=== PATIENT | female | born 1960 | race Caucasian/White ===

== ENCOUNTER 2018-02-05 15:30 | Emergency (ER) | payer OTHER ==
[2018-02-05 16:26] LABS: BILIRUBIN,URINE NEGATIVE (NEGATIVE); GLUCOSE, URINE (UA) NEGATIVE (NEGATIVE); KETONES,URINE (UA) NEGATIVE (NEGATIVE); LEUKOCYTE ESTERASE, URINE NEGATIVE (NEGATIVE); NITRITE,URINE NEGATIVE (NEGATIVE); OCCULT BLOOD,URINE NEGATIVE (NEGATIVE); PROTEIN,URINE NEGATIVE (NEGATIVE); UROBILINOGEN,URINE 0.2 (NORMAL) E.U./dL (NORMAL)
[2018-02-05 16:28] LABS: BASOPHILS # (AUTO) 0.1 10^3/uL (0.0-0.1); BASOPHILS % (AUTO) 0.8 %; EOSINOPHILS # (AUTO) 0.2 10^3/uL (0.0-0.7); EOSINOPHILS % (AUTO) 2.8 %; HGB - HEMOGLOBIN 14.9 g/dL (12.0-16.0); LYMPHOCYTES # (AUTO) 2.4 10^3/uL (1.5-3.5); LYMPHOCYTES % (AUTO) 37.6 %; MEAN CORPUSCULAR HEMOGLOBIN 34.4 pg (27.0-31.0); MEAN PLATELET VOLUME 9.8 fL (7.9-10.8); MONOCYTES # (AUTO) 0.5 10^3/uL (0.0-1.0); MONOCYTES % (AUTO) 7.9 %; NEUTROPHILS # (AUTO) 3.3 10^3/uL (1.5-6.6); NEUTROPHILS % (AUTO) 50.9 %; PLT - PLATELET COUNT 185 10^3/uL (130-450); RED BLOOD COUNT 4.32 10^6/uL (4.20-5.40); RED CELL DISTRIBUTION WIDTH 14.5 % (12.0-15.0); WHITE BLOOD COUNT 6.4 x10^3/uL (4.8-10.8)
[2018-02-05 16:31] LABS: CLARITY,URINE CLEAR (CLEAR)
[2018-02-05 16:32] LABS: ALBUMIN/GLOBULIN RATIO 1.1 (1.0-2.2); BILIRUBIN,TOTAL 0.3 mg/dL (0.2-1.0); CALCIUM 9.1 mg/dL (8.5-10.3); CREATININE 1.2 mg/dL (0.4-1.0); TOTAL PROTEIN 7.6 g/dL (6.7-8.2)
[2018-02-05 16:56] LABS: PLATELET ESTIMATE, MANUAL NORMAL (130-450,000) (NORMAL); PLATELET MORPHOLOGY 1+ LARGE PLATELETS (NORMAL); RBC MORPHOLOGY (MULTIPLE) NORMAL APPEARANCE (NORMAL)
--- NOTE | 2018-02-05 17:15 | ED Physician Documentation ---
PD HPI ABD PAIN - Stated complaint Stated Complaint: ABD PX - Chief complaint Chief Complaint: Abd Pain - History obtained from History obtained from: Patient - History of Present Illness Timing - onset: Other (1 month intermittent RLQ pain, usually worse at night Worse with sitting and better with walking. It was more constant today. She had nausea. No urinary complaints or radiation to the back. She has a history of remote hysterectomy and cholecystectomy.) Review of Systems Constitutional: denies: Fever, Chills Cardiac: denies: Chest pain / pressure, Palpitations Respiratory: denies: Dyspnea, Cough GI: reports: Abdominal Pain, Nausea, Diarrhea (chronic, ever since having her GB out). denies: Vomiting, Constipation : denies: Dysuria, Frequency, Hesitancy, Hematuria PD PAST MEDICAL HISTORY - Present Medications Home Medications: Ambulatory Orders Medication Instructions Recorded Confirmed Alprazolam [Xanax] 02/05/18 Duloxetine HCl [Cymbalta] 60 mg PO BID 02/05/18 02/05/18 Hydrocodone/Acetaminophen 1 - 2 each PO Q6H PRN #10 tablet 02/05/18 [Hydrocodon-Acetaminophen 5-325] RX: Omeprazole 20 mg PO BID 02/05/18 02/05/18 RX: Trazodone HCl 02/05/18 busPIRone [Buspar] 02/05/18 - Allergies Allergies/Adverse Reactions: Allergies Allergy/AdvReac Type Severity Reaction Status Date / Time Sulfa (Sulfonamide Allergy Anaphylaxis Verified 02/05/18 15:48 Antibiotics) PD ED PE NORMAL - Vitals Vital signs reviewed: Yes - General General: Alert and oriented X 3, No acute distress - HEENT HEENT: PERRL, EOMI - Neck Neck: Supple, no meningeal sign, No bony TTP - Cardiac Cardiac: RRR, No murmur - Respiratory Respiratory: No respiratory distress, Clear bilaterally - Abdomen Abdomen: Soft, Other (TTP RLQ>LLQ, no G/R/M) - Back Back: No CVA TTP, No spinal TTP - Derm Derm: Normal color, Warm and dry - Extremities Extremities: No edema, No calf tenderness / cord - Neuro Neuro: Alert and oriented X 3, Normal speech Results - Vitals Vitals: Vital Signs - 24 hr 02/05/18 02/05/18 02/05/18 15:45 17:06 18:51 Temperature 36.2 C L 36.9 C 36.8 C Heart Rate 93 79 69 Respiratory 16 20 18 Rate Blood Pressure 136/92 H 135/89 H 124/74 O2 Saturation 95 96 100 Oxygen O2 Source Room air - Labs Labs: Laboratory Tests 02/05/18 02/05/18 02/05/18 16:05 16:14 16:14 WBC 6.4 RBC 4.32 Hgb 14.9 Hct 43.7 MCV 101.0 H MCH 34.4 H MCHC 34.0 RDW 14.5 Plt Count 185 MPV 9.8 Neut # (Auto) 3.3 Lymph # (Auto) 2.4 [place] # (Auto) 0.5 Eos # (Auto) 0.2 Baso # (Auto) 0.1 Absolute Nucleated RBC 0.00 Nucleated RBC % 0.0 Manual Slide Review Indicated Platelet Estimate NORMAL (130-450,000) Platelet Morphology 1+ LARGE PLATELETS RBC Morph Micro Appear NORMAL APPEARANCE Sodium 137 Potassium 3.9 Chloride 103 Carbon Dioxide 26 Anion Gap 8.0 BUN 10 Creatinine 1.2 H Estimated GFR (MDRD) 47 L Glucose 115 H Calcium 9.1 Total Bilirubin 0.3 AST 13 ALT 12 Alkaline Phosphatase 81 Total Protein 7.6 Albumin 4.0 Globulin 3.6 Albumin/Globulin Ratio 1.1 Lipase 59 H Urine Color YELLOW Urine Clarity CLEAR Urine pH 6.0 Ur Specific [place] 1.015 Urine Protein NEGATIVE Urine Glucose (UA) NEGATIVE Urine Ketones NEGATIVE Urine Occult Blood NEGATIVE Urine Nitrite NEGATIVE Urine Bilirubin NEGATIVE Urine Urobilinogen 0.2 (NORMAL) Ur Leukocyte Esterase NEGATIVE Ur Microscopic Review NOT INDICATED Urine Culture Comments NOT INDICATED PD MEDICAL DECISION MAKING - ED course ED course: 57-year-old woman with right lower quadrant pain of about a months duration. She has mild tenderness on examination. Her workup is negative. We did note the high MCV, creatinine. She does admit to drinking heavily and she was advised to decrease this. - Sepsis Event Vital Signs: Vital Signs - 24 hr 02/05/18 02/05/18 02/05/18 15:45 17:06 18:51 Temperature 36.2 C L 36.9 C 36.8 C Heart Rate 93 79 69 Respiratory 16 20 18 Rate Blood Pressure 136/92 H 135/89 H 124/74 O2 Saturation 95 96 100 Oxygen O2 Source Room air Departure - Departure Disposition: 01 Home, Self Care Clinical Impression: Abdominal pain Condition: Good Record reviewed to determine appropriate education?: Yes Instructions: ED Abdominal Pain Unkn Cause Prescriptions: Hydrocodone/Acetaminophen [Hydrocodon-Acetaminophen 5-325] 1 - 2 each PO Q6H PRN #10 tablet PRN Reason: pain Comments: Return if worse or for any new symptoms. Discharge Date/Time: 02/05/18 18:55
[2018-02-05] MEDS ORDERED: MORPHINE 2 MG/ML CARPUJECT IVP STA (17:21)
[2018-02-05] MEDS ORDERED: IOPAMIDOL-300 100 ML VIAL ONE (17:45)
[2018-02-05] MEDS ORDERED: SODIUM CHLORIDE 0.9% 1,000 ML IV ONE (17:49)
[2018-02-05] MEDS ORDERED: KETOROLAC 60 MG/2 ML VIAL IVP STA (18:18)
--- NOTE | 2018-02-05 18:37 | CT Report ---
Reason: IV only, RLQ pain Procedure Date: 02/05/2018 Accession Number: [id number] / [id number] Procedure: CT - Abdomen/Pelvis W/ CPT Code: FULL RESULT: EXAM: CT ABDOMEN AND PELVIS EXAM DATE: 02/05/2018 06:06 PM. CLINICAL HISTORY: IV only, RLQ pain. COMPARISONS: None. TECHNIQUE: Routine helical CT imaging was performed through the abdomen and pelvis. IV contrast: ISOVUE 300 100mL. Enteric contrast: No. Reconstructions: Coronal and sagittal. In accordance with CT protocol optimization, one or more of the following dose reduction techniques were utilized for this exam: automated exposure control, adjustment of mA and/or KV based on patient size, or use of iterative reconstructive technique. FINDINGS: Lung Bases: Unremarkable. Liver: Normal. No masses. Gallbladder/Bile Ducts: Gallbladder not visualized. Spleen: Normal. Pancreas: Normal. Adrenal Glands: Normal. Kidneys: Normal. No masses or hydronephrosis. Peritoneal Cavity/Bowel: There is a small to moderate size sliding hiatal hernia. No dilated bowel. No free fluid, free air or adenopathy. No masses or acute inflammatory process. The appendix is well visualized and normal. Pelvic Organs: Urinary bladder is partially fluid filled and otherwise unremarkable. The uterus is absent. The ovaries appear normal in size for age. Vasculature: There is moderate calcification of the abdominal aorta without aneurysm. Bones: There is degenerative disk disease at L5-S1. Other: None. IMPRESSION: 1. Normal appendix. 2. Small to moderate sliding hiatal hernia. 3. No other CT finding to explain clinical symptoms. [facility]
[2018-02-05 18:54] VITALS: BP 124/74
== END 2018-02-05 18:55 | disposition home or self-care (01) ==
LOC: ED 15:30
DX: R10.31 Right lower quadrant pain (principal); R79.89 Other specified abnormal findings of blood chemistry; R71.8 Other abnormality of red blood cells
CPT/HCPCS: 36415; 74177; 80053; 81003; 83690; 85025; 96361; 96374; 96375; 99283; Q9967; 81001; 87086